=== PATIENT | female | born 1985 | race African-American/Black ===

== ENCOUNTER 2019-07-05 17:55 | Emergency (ER) | payer OTHER ==
[~2019-07-05] VITALS: Ht 177.8 cm; Wt 124.7 kg
[2019-07-05 20:22] VITALS: BP 126/79
== END 2019-07-05 20:23 | disposition home or self-care (01) ==
LOC: ER 17:55
DX: O20.0 Threatened abortion (principal); Z3A.10 10 weeks gestation of pregnancy